=== PATIENT | female | born 1995 ===

== ENCOUNTER 2018-11-15 10:58 | Emergency (ER) | payer OTHER ==
[2018-11-15 11:08] VITALS: BP 128/78
--- NOTE | 2018-11-15 11:21 | UC ---
Skin Complaint HPI - HPI Summary HPI Summary: 23 yo female presents with ?abscess on chin. She tells me that she was in the ER about a week ago for severe pain in her chin. Was told it might be a salivary stone and was told to take ibuprofen. She is here today because her chin has become more red and swollen and is TTP. She is able to eat and drink without difficulty. Denies fever or chills - History of Current Complaint Chief Complaint: UCSkin Time Seen by Provider: 11/15/18 11:21 Stated Complaint: SKIN COMPLAINT Hx Obtained From: Patient Hx Last Menstrual Period: 10/21/18 Onset/Duration: Gradual Onset Onset Severity: Moderate Current Severity: Moderate Pain Intensity: 6 Pain Scale Used: 0-10 Numeric - Allergy/Home Medications Allergies/Adverse Reactions: Allergies Allergy/AdvReac Type Severity Reaction Status Date / Time No Known Allergies Allergy Verified 11/15/18 11:08 Home Medications: Home Medications Melatonin [Melatonin Maximum Strengt] 29 mg PO 11/15/18 [History] PMH/Surg Hx/FS Hx/Imm Hx - Additional Past Medical History Additional PMH: None - Surgical History Surgical History: None Surgery Procedure, Year, and Place: denies - Family History Known Family History: Positive: None - Social History Occupation: Employed Full-time Lives: With Family Alcohol Use: Rare Substance Use Type: None Smoking Status (MU): Never Smoked Tobacco Review of Systems All Other Systems Reviewed And Are Negative: Yes Constitutional: Positive: Negative Skin: Positive: Other - Chin abscess ENT: Positive: Negative Respiratory: Positive: Negative Cardiovascular: Positive: Negative Neurovascular: Positive: Negative Neurological: Positive: Negative Psychological: Positive: Negative Physical Exam - Summary Physical Exam Summary: GENERAL: NAD. WDWN. No pain distress. SKIN: CHIN: 1.0cm area of erythema, edema, mild TTP, and slight induration. No drainage, streaking, or warmth. HEENT: Head: AT/NC Nose: Nasal mucosa pink and moist. NTTP maxillary and frontal sinus. Throat: Posterior oropharynx without exudates, erythema, or tonsillar enlargement. Uvula midline. NECK: Supple. Nontender. No lymphadenopathy. CHEST: CTAB. No r/r/w. No accessory muscle use. Breathing comfortably and in no distress. CV: RRR. Without m/r/g. Pulses intact. Cap refill <2seconds NEURO: Alert. PSYCH: Age appropriate behavior. Triage Information Reviewed: Yes Vital Signs: Initial Vital Signs Temp 97.8 F 11/15/18 11:05 Pulse 100 11/15/18 11:05 Resp 20 11/15/18 11:05 BP 128/78 11/15/18 11:05 Pulse Ox 99 11/15/18 11:05 Vital Signs Reviewed: Yes Dental: Negative: Percussion Tenderness @, Gross Decay/Caries @, Dental Fracture @, Abscess @ Course/Dx - Course Course Of Treatment: Possible abscess on chin. Rx for clindamycin and f/u if symptoms do not improve - Diagnoses Provider Diagnosis: Abscess of chin Discharge - Sign-Out/Discharge Documenting (check all that apply): Patient Departure All imaging exams completed and their final reports reviewed: No Studies - Discharge Plan Condition: Stable Disposition: HOME Prescriptions: Clindamycin Cap(NF) [Clindamycin Cap 300 mg Cap(NF)] 300 mg PO TID #21 cap Patient Education Materials: Abscess (ED) Referrals: No Primary Care Phys,NOPCP [Primary Care Provider] - Additional Instructions: If you develop a fever, shortness of breath, chest pain, new or worsening symptoms - please call your PCP or go to the ED. Apply ice to the area to decrease pain and swelling. Please return if you feel this area become enlarged, warm to touch, or feeling like it needs to pop - as it may need to be drained - Billing Disposition and Condition Condition: STABLE Disposition: Home
== END 2018-11-15 12:00 | disposition home or self-care (01) ==
LOC: UCEAST 10:58
DX: L02.01 Cutaneous abscess of face (principal)
CPT/HCPCS: 99202; G0463